=== PATIENT | male | born 1985 | race Caucasian/White ===

== ENCOUNTER 2022-04-08 09:06 | Emergency (ER) | payer OTHER, SELFPAY ==
--- NOTE | ~2022-04-08 | CT_ITS ---
EXAMINATION: CT abdomen pelvis w con DATE: 04/08/2022 10:58 INDICATION: Upper abdominal pain, back pain TECHNIQUE: Computed tomography (CT) of the abdomen and pelvis was performed with 100 CC Omnipaque 350 intravenous contrast. Automated exposure control and iterative reconstruction technique were employe d. Exam dose: 1035.60 mGy-cm total exam DLP. COMPARISON: None. FINDINGS: There is minimal dependent atelectasis in the left lower lobe. Normal heart size. No perica rdial or pleural effusion. Diffuse hepatic steatosis with minimal pericholecystic sparing. No hepatic, splenic, pancreatic, adre nal or renal space-occupying mass lesion. No bile duct or pancreatic duct dilatation. The gallbladder is unremarkable. No urinary tract calculus or hydroureteronephrosis. Normal caliber of the abdominal aorta. No intraperitoneal or retroperitoneal mass lesion or adenopathy or ascites There is diffuse thickening of the urinary bladder wall which may be due to the postevacuated state. Normal size of the prostate gland. Normal caliber of the abdominal aorta. No intraperitoneal or retroperitoneal or pelvic mass lesion or adenopathy or ascites. Normal appendix. No bowel obstruction, bowel wall thickening, pneumatosis or intraperitoneal free air . Very small fat-containing umbilical hernia. Included skeletal structures are unremarkable. No suspicious osteolytic or osteoblastic lesions. IMPRESSION: Hepatic steatosis Normal appendix Reviewed, dictated and finalized at [facility]. Reviewed, dictated and finalized at [facility].
[2022-04-08 09:18] VITALS: BP 142/98; PULSE 71; RESP 14; TEMP 37; O2SAT 98
--- NOTE | 2022-04-08 09:27 | ED.ABDPAIN ---
HPI - Abdominal Pain General Chief Complaint: Abdominal Pain Stated Complaint: mult c/o Time Seen by Provider: 04/08/22 09:13 History of Present Illness HPI narrative: 36-year-old male with no medical problems presents the emergency room for complaints of generalized abdominal pain, mid back pain and fevers for 3 days. Patient states symptoms started on Wednesday, with reported T-max of 103.5. Upper abdominal pain is made worse with eating. States that he has been constipated for 3 days, but did experience a soft stool this morning. Denies melanotic or hematochezia. Patient states he was seen in urgent care yesterday, where he had a negative COVID and flu test. Related Data Allergies Allergy/AdvReac Type Severity Reaction Status Date / Time No Known Allergies Allergy Verified 04/08/22 09:25 Review of Systems Review of Systems: CONSTITUTIONAL: Reports fevers EYES: Denies visual changes, redness, or discharge. ENT: Denies rhinorrhea, congestion, sore throat, or otalgia. CARDIOVASCULAR: Denies chest pain, palpitations, or edema. RESPIRATORY: Denies cough or dyspnea. GASTROINTESTINAL: Reports abdominal pain, nausea, constipation GENITOURINARY: Denies dysuria or hematuria. SKIN: Denies rash or itching. MUSCULOSKELETAL: Reports back pain NEUROLOGIC: Denies headache, numbness, dizziness, or weakness. PSYCHIATRIC: Denies anxiety or depression. Exam Narrative: GENERAL: Well-appearing, well-nourished, no physical limitations, and in no acute distress. HEAD: Normocephalic, atraumatic. EYES: Conjunctivae normal, PERRLA and EOMI. CHEST: Clear to auscultation. No respiratory distress. No wheezes rales or rhonchi. No tenderness. HEART: Regular rate and rhythm. No murmur heard. Normal peripheral pulses. ABDOMEN: Soft, periumbilical tenderness, nondistended, normal active bowel sounds. BACK: No CVA tenderness; No cervical/thoracic/lumbar tenderness, step-offs, bony abnormality; FROM EXTREMITIES: Normal range of motion. No edema. No clubbing or cyanosis SKIN: Warm, diaphoretic, no rash. No noted wounds NEURO: No focal deficits. Alert and oriented x3. MAEW. CN's II-XI intact bilaterally, normal gait PSYCH: Cooperative. Normal mood and affect. Course Vital Signs Vital signs: Vital Signs Temperature 37.0 C 04/08/22 09:18 Pulse Rate 71 04/08/22 09:18 Respiratory Rate 14 04/08/22 09:18 Blood Pressure 142/98 H 04/08/22 09:18 Pulse Oximetry 98 04/08/22 09:18 Temperature 37.0 C 04/08/22 09:18 Pulse Rate 71 04/08/22 09:18 Respiratory Rate 14 04/08/22 09:18 Blood Pressure 142/98 H 04/08/22 09:18 Pulse Oximetry 98 04/08/22 09:18 MDM - Abdominal Pain Lab Data Result diagrams: 04/08/22 09:40 04/08/22 09:40 Labs: Lab Results 04/08/22 04/08/22 04/08/22 Range/Units 09:40 09:40 09:54 WBC 3.7 L (4.5-10.0) K/mm3 RBC 5.27 (4.6-6.20) M/mm3 Hgb 15.5 (14.0-18.0) g/dL Hct 48.1 (42.0-52.0) % MCV 91.3 (80-100) fl MCH 29.4 (26-34) pg MCHC 32.2 (32-36) g/dl RDW 13.2 (11.5-14.5) % Plt Count 237 (150-375) k/mm3 MPV 11.8 H (7.4-10.4) fl Immature Gran % (Auto) 0.3 (0-0.5) % Neut % (Auto) 26.0 L (45.5-73.1) % Lymph % (Auto) 52.3 H (18.3-44.2) % [place] % (Auto) 19.0 H (2.6-8.5) % Eos % (Auto) 1.3 (0-4.4) % Baso % (Auto) 1.1 (0.2-1.2) % Lymph # (Auto) 1.95 (0.9-3.2) K/mm3 [place] # (Auto) 0.7 H (0.1-0.6) K/mm3 Eos # (Auto) 0.1 (0-0.3) K/mm3 Baso # (Auto) 0.0 (0.0-0.1) K/mm3 Abs Immat Gran (auto) 0.01 (0.00-0.031) K/mm3 Absolute Neuts (auto) 1.0 L (1.3-6.7) K/mm3 Absolute Nucleated RBC 0.0 (0.0-0.012) K/mm3 Nucleated RBC % 0.0 (0.0-0.2) % Sodium 139 (137-145) mmol/L Potassium 4.3 (3.4-5.0) mmol/L Chloride 104 (98-107) mmol/L Carbon Dioxide 24 (22-30) mmol/L Anion Gap 11 (8-16) mmol/L BUN 10 (9-20) mg/dL Creatinine 0.80 (0.7-1.3) mg/
[2022-04-08 10:08] LABS: Basophils Percent Auto 1.1 % (0.2-1.2); Eosinophils Absolute Auto 0.1 K/mm3 (0-0.3); Eosinophils Percent Auto 1.3 % (0-4.4); Hematocrit 48.1 % (42.0-52.0); Hemoglobin 15.5 g/dL (14.0-18.0); Immature Granulocyte Absolute 0.01 K/mm3 (0.00-0.031); Immature Granulocyte Percent A 0.3 % (0-0.5); Lymphocytes Absolute Auto 1.95 K/mm3 (0.9-3.2); Lymphocytes Percent Auto 52.3 % (18.3-44.2); Mean Corpuscular HGB Conc 32.2 g/dl (32-36); Mean Corpuscular Hemoglobin 29.4 pg (26-34); Mean Corpuscular Volume 91.3 fl (80-100); Mean Platelet Volume 11.8 fl (7.4-10.4); Monocytes Absolute Auto 0.7 K/mm3 (0.1-0.6); Platelet Count Result 237 k/mm3 (150-375); Red Blood Count 5.27 M/mm3 (4.6-6.20); Red Cell Distribution Width 13.2 % (11.5-14.5); White Blood Count 3.7 K/mm3 (4.5-10.0)
[2022-04-08 10:14] LABS: Appearance Urine Clear (Clear); Bilirubin Urine 1+ (Negative); Blood Urine Negative (Negative); Color Urine Yellow (Yellow); Glucose Urine UA Negative (Negative); Ketones Urine Negative (Negative); Leukocyte Esterase Ur Negative LEU/UL (Negative); Nitrate Urine Negative (Negative); Protein Urine Trace mg/dL (Negative); Specific Grav Ur >= 1.030 (1.001-1.035); Urobilinogen Urine 0.2 mg/dL (<2.0)
[2022-04-08 10:19] LABS: Alanine Aminotransferase 147 U/L (6-50); Albumin Level 4.2 g/dL (3.5-5.1); Alkaline Phosphatase 54 U/L (38-126); Anion Gap 11 mmol/L (8-16); Aspartate Amino Transferase 90 U/L (17-59); Bilirubin,Total 0.4 mg/dL (0.2-1.3); Blood Urea Nitrogen 10 mg/dL (9-20); Calcium 8.6 mg/dL (8.4-10.2); Carbon Dioxide 24 mmol/L (22-30); Chloride 104 mmol/L (98-107); Estimated CRCL calculation 138 ml/min; Estimated Glomerular Filt Rate > 60; Glucose 109 mg/dL (65-110); Lipase 86 U/L (23-300); Potassium 4.3 mmol/L (3.4-5.0); Sodium 139 mmol/L (137-145)
[2022-04-08 10:27] LABS: Add Urine Microscopic? YES; Mucus Urine Moderate /lpf; RBC Urine 0-2 /hpf (0-2); WBC Urine 0-3 /hpf
[2022-04-08] MEDS: SODIUM CHLORIDE 0.9% IV 1,000 ML 999 ML IV CONT (10:28)
[2022-04-08 10:40] LABS: SARS-CoV-2 RNA PCR Positive
== END 2022-04-08 11:49 | disposition home or self-care (01) ==
PROVIDERS: Emergency Provider Nurse Practitioner Family
DX: U07.1 COVID-19 (principal); K59.00 Constipation, unspecified
CPT/HCPCS: 36415; 74177; 80053; 81001; 83690; 85025; 96360; 99284; C9803; J7030; Q9967; U0003; U0005

== ENCOUNTER 2022-07-25 20:06 | Emergency (ER) | payer BC, SELFPAY ==
[2022-07-25] VITALS (22 sets, daily range): BP systolic 130–190; BP diastolic 65–115; PULSE 56–70; RESP 12–19; TEMP 36.6; O2SAT 96–100
--- NOTE | ~2022-07-25 | XR_ITS ---
EXAMINATION: XR chest 2V Exam Date/Time: 07/25/2022 20:28 [employer] HISTORY: SOB CHEST PAIN FOR THE LAST WEEK. Comparison: None available. RESULT: Lines, tubes, and devices: None. Lungs and pleura: Mild diffuse reticulonodular opacities in the mid and lower lungs. Cardiomediastinal silhouette: Stable. Other: No acute osseous or upper abdominal finding. IMPRESSION: Pulmonary opacities may represent bronchiolitis, as can be seen with atypical infection, asthma, aspi ration, and small airways disease. Reviewed, dictated and finalized at location [facility]. [employer] IMPRESSION: Pulmonary opacities may represent bronchiolitis, as can be seen with atypical i nfection, asthma, aspiration, and small airways disease.
--- NOTE | 2022-07-25 20:24 | ECG_ITS ---
Measurements Intervals [place] Rate: 61 P: 48 IN: 170 QRS: 28 QRSD: 100 T: 29 QT: 403 QTc: 408 Interpretive Statements SINUS RHYTHM POSSIBLE LEFT ATRIAL ENLARGEMENT BORDERLINE ECG NO PREVIOUS ECG AVAILABLE FOR COMPARISON Electronically Signed On 07-26-2022 8:01:17 [employer] by Francesco Chanel D.O.
--- NOTE | 2022-07-25 20:27 | PC.NURSE ---
patient reports pain in middle of the neck when he gets SOB. also reports crunching sound in back on occasion x1 week as well
[2022-07-25 20:31] LABS: Basophils Absolute Auto 0.1 K/mm3 (0.0-0.1); Basophils Percent Auto 0.8 % (0.2-1.2); Eosinophils Absolute Auto 0.4 K/mm3 (0-0.3); Eosinophils Percent Auto 3.8 % (0-4.4); Hematocrit 46.7 % (42.0-52.0); Hemoglobin 15.3 g/dL (14.0-18.0); Immature Granulocyte Absolute 0.02 K/mm3 (0.00-0.031); Immature Granulocyte Percent A 0.2 % (0-0.5); Lymphocytes Absolute Auto 3.87 K/mm3 (0.9-3.2); Lymphocytes Percent Auto 35.2 % (18.3-44.2); Mean Corpuscular HGB Conc 32.8 g/dl (32-36); Mean Corpuscular Hemoglobin 29.9 pg (26-34); Mean Corpuscular Volume 91.2 fl (80-100); Mean Platelet Volume 11.1 fl (7.4-10.4); Monocytes Absolute Auto 1.1 K/mm3 (0.1-0.6); Monocytes Percent Auto 10.4 % (2.6-8.5); Neutrophils Absolute Auto 5.5 K/mm3 (1.3-6.7); Neutrophils Percent Auto 49.6 % (45.5-73.1); Platelet Count Result 271 k/mm3 (150-375); Red Blood Count 5.12 M/mm3 (4.6-6.20); Red Cell Distribution Width 12.7 % (11.5-14.5)
[2022-07-25 20:46] LABS: Alanine Aminotransferase 80 U/L (6-50); Albumin Level 4.6 g/dL (3.5-5.1); Alkaline Phosphatase 56 U/L (38-126); Anion Gap 8 mmol/L (8-16); Aspartate Amino Transferase 40 U/L (17-59); Bilirubin,Total 0.8 mg/dL (0.2-1.3); Blood Urea Nitrogen 14 mg/dL (9-20); Carbon Dioxide 30 mmol/L (22-30); Chloride 101 mmol/L (98-107); Estimated CRCL calculation 127 ml/min; Estimated Glomerular Filt Rate > 60; Glucose 93 mg/dL (65-110); Potassium 3.6 mmol/L (3.4-5.0); Sodium 139 mmol/L (137-145)
--- NOTE | 2022-07-25 20:56 | ED.GENADULT ---
HPI - General Adult General Chief complaint: Shortness of Breath/Dyspnea Stated complaint: chest pressure and SOB x 6 day Time Seen by Provider: 07/25/22 20:22 History of Present Illness HPI narrative: This is a 36-year-old male presenting ED with 6 days of chest pain and shortness of breath. Patient says that the pain started last Wednesday and he does not remember what he was doing. Is originally a sharp throbbing pain but is now transition to have a pressure over his chest. It is nonradiating, 5/10 intensity. He says it has happened every hour for at least 5 minutes and then resolves on its own. He has never experienced pain like this before. It improves with stretching and gets worse when he goes walking. He denies vomiting radiation but admits to an exertional component. patient does admit to some lower extremity edema however it is worse at night and improves in the morning and is likely benign peripheral edema. Patient denies fever, chills, productive cough, sick contacts at home. Taken multiple COVID test with no results. Patient states he has a lot of stress at work. Related Data Allergies Allergy/AdvReac Type Severity Reaction Status Date / Time No Known Allergies Allergy Verified 04/08/22 09:25 [facility] Past Medical History Medical History Healthy male adult Exam Narrative: APPEARANCE: No apparent distress. Head: atraumatic. EYES: EOMI, NOSE: Atraumatic NECK: Trachea midline RESPIRATORY: No increased rate of breathing , clear to auscultation bilaterally, CARDIOVASCULAR: RRR, no peripheral edema ABDOMINAL: Non-distended soft, non-tender MUSCULOSKELETAl: No obvious deformities NEURO: Alert. Moving 4/4 extremities SKIN:: Warm, dry. Normal color PSYCHIATRIC: Normal affect Course Vital Signs Vital signs: Vital Signs Temperature 97.8 F 07/25/22 20:06 Pulse Rate 70 07/25/22 20:06 Respiratory Rate 18 07/25/22 20:06 Blood Pressure 190/115 H 07/25/22 20:06 Pulse Oximetry 99 07/25/22 20:06 Oxygen Delivery Room Air 07/25/22 20:06 Temperature 97.8 F 07/25/22 20:06 Pulse Rate 57 L 07/25/22 23:45 Respiratory Rate 17 07/25/22 23:45 Blood Pressure 130/88 07/25/22 23:45 Pulse Oximetry 99 07/25/22 23:45 Oxygen Delivery Room Air 07/25/22 20:23 Medical Decision Making MDM Narrative Medical decision making narrative: DDX includes but is not limited to: anxiety, musculoskeletal pain, ACS, pulmonary embolism, pneumonia, pleurisy Co-morbidities complicating care: none however patient has not seen a PCP in a long time External Chart Review: none Hx from independent Sources: none Discussion of Management: discussed patient's symptoms and the workup that we have planned in the emergency department. If the workup is negative the patient is comfortable following up with a primary care physician. Independent interpretation of studies: Chest x-ray, lab work and ekg seen below. Dx tests considered but not ordered: D-dimer/ CTA was not ordered as the patient is PERC negative. Shared decision making: Risks and benefits of admission versus outpatient follow-up were discussed with the patient. As the patient is young, healthy with normal vital signs is not rub acquiring supplemental oxygen he is a good candidate for outpatient treatment. Patient be discharged primary care follow-up Procedures: None Interventions: None. This is a 36-year-old male presenting with chest pressure over the last week. Lab work, chest x-ray and EKG will be obtained. The patient likely has undiagnosed hypertension, and has exertional component to the pain so an ACS workup will be performed although he is low risk. Independent EKG interpretation: Rhythm [sinus], Rate 61, [place] -[normal], [place] -[normal], QRS [narrow], QTC [normal], T waves -[negative for concerning inversions], ST Segments - [Negative for concerning elevations] Final interpretations
[2022-07-25 21:21] LABS: Troponin I < 0.012 ng/mL (0.000-0.034)
--- NOTE | 2022-07-25 22:56 | PC.NURSE ---
Report received from ELVA Mcintyre. Assumed care of patient at this time.
[2022-07-25 23:21] LABS: Troponin I < 0.012 ng/mL (0.000-0.034)
[2022-07-26 00:01] VITALS: PULSE 79; RESP 17; O2SAT 99
[2022-07-26 00:15] VITALS: PULSE 62; RESP 15; O2SAT 98
[2022-07-26] MEDS: AZITHROMYCIN 250 MG TABLET 500 MG PO (00:21)
== END 2022-07-26 00:32 | disposition home or self-care (01) ==
PROVIDERS: Emergency Provider Emergency Medicine
DX: J18.9 Pneumonia, unspecified organism (principal); R94.31 Abnormal electrocardiogram [ECG] [EKG]
CPT/HCPCS: 36415; 71046; 80053; 84484; 85025; 93005; 99284; A9270

== ENCOUNTER 2022-09-03 13:36 | Outpatient (CLI) | payer BC, SELFPAY ==
--- NOTE | 2022-09-03 15:45 | WPDPFTINT ---
PFT Procedure Performed PFT Procedure Performed Spirometry with Pre/Post Bronchodilator Plethysmography (Lung Vol) Diffusing Cap (DLCO) Flow Vol Loop PFT Interpretation This is a pulmonary function test with pre and post-bronchodilator spirometry, plethysmography and diffusing capacity. The test was performed and results interpreted in accordance with the 2019 and 2005 ATS/ERS Task Force guidelines respectively using the Global Lung Function Initiative-2012 reference equations. Patient demonstrated good effort and cooperation. Reproducibility criteria were met. The quality of the pre bronchodilator spirometry maneuver was Grade A and post bronchodilator spirometry maneuver was Grade A. Findings: Spirometry: the contour the inspiratory and expiratory flow tracing are normal. The pre bronchodilator FVC is 4.92 L, 93% predicted. The pre bronchodilator FEV1 is 3.98 L, 93% predicted. The pre bronchodilator FEV1: FVC ratio was 81%. The post bronchodilator FVC is 4.66 L, representing a 5% decrease. The post bronchodilator FEV1 is 3.93 L, representing 1% decrease. The post bronchodilator FEV1: FVC ratio was 84%. Plethysmography: The total lung capacity is 6.62 L, 95% predicted. The functional residual capacity is 3.26 L, 94% predicted. The residual volume is 1.53 L, 84% predicted. Diffusing capacity: The difusing capacity unadjusted for hemoglobin and carboxyhemoglobin is 32.4, 98% predicted. The diffusing capacity adjusted for alveolar volume is 5.53, 113% predicted. Impression: The spirometry is normal without evidence of an obstructive abnormality. There is no significant improvement after inhaling a single dose of albuterol. The lung volumes are normal. The diffusing capacity is normal. There are no prior studies for comparison
== END 2022-09-03 13:37 | disposition home or self-care (01) ==
LOC: ANHPFT 13:37
PROVIDERS: PCP Physician Assistant; Visit Provider Nurse Practitioner
DX: J45.909 Unspecified asthma, uncomplicated (principal)
CPT/HCPCS: 94060; 94726; 94729

== ENCOUNTER 2022-09-25 01:01 | Day surgery (SDC) | payer BC, SELFPAY ==
[2022-09-21 09:25] VITALS: BMI 36.0
--- NOTE | 2022-09-24 12:25 | PM.HPGS ---
History of Present Illness History of Present Illness Consent: Risks, benefits, and alternatives have been discussed and questions answered. Patient agrees to proceed with procedure. Chief complaint: GERD Narrative: Nimesh Ortiz is a 37 year old male Referred for investigation of chronic gastroesophageal reflux. he wakes up at night coughing because he is regurgitating. He has developed pulmonary problems which is felt to be due in part to his acid reflux. He is taking omeprazole 40 mg daily. Review of Systems Review of Systems: All systems reviewed & are unremarkable except as noted in HPI and below PMFSH Past Medical History Medical History Healthy male adult Social History Social History Smoking status: Former smoker Tobacco type: cigarettes Alcohol intake: current Alcohol use details: socially Substance use: never Substance use type: does not use Living arrangements: with family Spiritual care concerns: No Meds Home Medications and Allergies Home Medications Medication Instructions Recorded Confirmed Type omeprazole 40 mg capsule,delayed 40 mg PO DAILY 09/21/22 09/25/22 History release Allergies Allergy/AdvReac Type Severity Reaction Status Date / Time No Known Allergies Allergy Verified 09/25/22 09:29 Exam Const: General: alert Orientation/consciousness: patient oriented x3 Resp: Auscultation: clear to auscultation bilaterally Cardio: Rhythm: regular rhythm GI: GI Palp: Yes Soft to palpation and No Tenderness to palpation present (GI) Neuro: General: patient oriented x3 Assessment and Plan Assessment and plan (1) GERD (gastroesophageal reflux disease): Code(s): K21.9 - Gastro-esophageal reflux disease without esophagitis Status: Acute Assessment and Plan: EGD with possible biopsy or dilatation or cautery.
[2022-09-25 09:30] VITALS: BP 154/85; PULSE 63; RESP 16; TEMP 36.2; O2SAT 98
[2022-09-25] MEDS: LACTATED RINGERS 1,000 ML 150 ML IV CONT (09:38)
--- NOTE | 2022-09-25 09:58 | P.PNAN_ITS ---
Anes - Initial Pre Proc Eval Procedure: Operation Date: 09/25/22 10:30 Proposed Procedures p Esophagogastroduodenoscopy - Costa Franco MD Date/Time: 09/25/22 09:58 Surgeon: Costa Franco MD Pre Op Diagnosis: GERD Patient Data Age: 37 Gender: M Height: 1.78 m Weight: 116.4 kg Last Vital Signs Temp 36.2 C L 09/25/22 09:30 Pulse 63 09/25/22 09:30 Resp 16 09/25/22 09:30 BP 154/85 H 09/25/22 09:30 Pulse Ox 98 09/25/22 09:30 O2 Del Method Room Air 09/25/22 09:30 Allergies Allergy/AdvReac Type Severity Reaction Status Date / Time No Known Allergies Allergy Verified 09/25/22 09:29 Home Medications Medication Instructions Recorded Confirmed Type omeprazole 40 mg capsule,delayed 40 mg PO DAILY 09/21/22 09/25/22 History release Patient hx anesthesia problems: none Family hx anesthesia problems: none Results Review: All pre-operative results and documents have been reviewed as part of the pre- operative evaluation. [facility] Past Medical History Medical History (Updated 09/25/22 @ 09:59 by Leif Navarrete MD) Asthma GERD (gastroesophageal reflux disease) Obesity OFELIA on CPAP Social History Social History Smoking status: Former smoker Tobacco type: cigarettes Alcohol intake: current Alcohol use details: socially Substance use: never Substance use type: does not use Living arrangements: with family Spiritual care concerns: No Anes - Eval Final PreProcedure Day of Procedure 09/25/22 09:58 Patient weight: obese Heart: regular rate and rhythm Lungs: clear to auscultation and normal air movement Airway: Mallampati scale class II Neurological: alert and oriented Last oral intake: >/= 8 hours ASA classification: III Emergent: no Anesthetic plan: proceed Anesthesia type and monitoring: general GIVS Results Review: All pre-operative results and documents have been reviewed as part of the pre- operative evaluation. Informed Consent: The patient's anesthetic plan and its attendant risks and benefits were discussed with the patient/family/POA. Questions were solicited and answers provided to the satisfaction of the patient/family/POA.
[2022-09-25 10:26] VITALS: BP 130/61; PULSE 69; RESP 20; O2SAT 95
[2022-09-25 10:36] VITALS: BP 135/79; PULSE 72; RESP 18; O2SAT 97
[2022-09-25 10:46] VITALS: BP 140/87; PULSE 66; RESP 18; O2SAT 95
== END 2022-09-25 11:00 | disposition home or self-care (01) ==
PROVIDERS: PCP Physician Assistant; Visit Provider Internal Medicine Gastroenterology
PROC: 0DJ08ZZ Inspection of Upper Intestinal Tract, Via Natural or Artificial Opening Endoscopic (ICD-10-PCS; CPT 43235; principal; 2022-09-25 10:30)
DX: K21.9 Gastro-esophageal reflux disease without esophagitis (principal); Z87.891 Personal history of nicotine dependence
CPT/HCPCS: 43239; 88305; 88342; J2704; J7120

== ENCOUNTER → 2022-12-26 10:51 | Outpatient (CLI) | payer BC, SELFPAY ==
--- NOTE | ~2022-12-26 | XR_ITS ---
XR thoracic spine 3V 12/26/2022 11:24 Indication: Thoracic back pain Procedure: 3 views of the thoracic spine Comparison: No prior studies for comparison. Findings: There is mild multilevel thoracic spondylosis. Vertebral body heights are maintained. Pedic les intact. No paraspinal soft tissue abnormalities. Surrounding osseous structures within normal siddiqui its. No acute fracture or traumatic malalignment. Impression: 1: Mild thoracic spondylosis. Reviewed, dictated and finalized at location [facility]. Impression: 1: Mild thoracic spondylosis.
--- NOTE | ~2022-12-26 | XR_ITS ---
EXAMINATION: XR chest 2V 12/26/2022 11:25 INDICATION: Shortness of breath PROCEDURE: 2 view chest COMPARISON: 07/25/2022 FINDINGS: The lungs are clear. The cardiomediastinal silhouette is within normal limits. There are no pleural effusions. There is no pneumothorax suspected. IMPRESSION: 1: NO ACUTE CARDIOPULMONARY DISEASE. Reviewed, dictated and finalized at location [facility].
== END ==
PROVIDERS: PCP Physician Assistant; Visit Provider Physician Assistant
DX: M47.814 Spondylosis without myelopathy or radiculopathy, thoracic region (principal); R91.8 Other nonspecific abnormal finding of lung field
CPT/HCPCS: 71046; 72072

== ENCOUNTER 2023-02-09 10:20 | Outpatient (CLI) | payer BC, SELFPAY ==
[2023-02-09 11:51] LABS: Hepatitis B Surface Antigen Negative (Negative)
[2023-02-09 11:56] LABS: HAV RESULT Negative (Negative); Hepatitis B Core IgM Result Negative (Negative)
[2023-02-09 12:08] LABS: Hepatitis C Virus Antibody Negative (Negative)
[2023-02-12 12:13] LABS: LKM 1 Antibody <=20.0 U (<=20.0)
== END 2023-02-09 10:21 | disposition home or self-care (01) ==
LOC: ANHLAB 10:22
PROVIDERS: PCP Physician Assistant; Visit Provider Internal Medicine Gastroenterology
DX: K76.0 Fatty (change of) liver, not elsewhere classified (principal); R74.8 Abnormal levels of other serum enzymes
CPT/HCPCS: 36415; 80074; 82728; 86038; 86039; 86376

== ENCOUNTER 2023-02-18 07:57 | Outpatient (CLI) | payer BC, SELFPAY ==
--- NOTE | ~2023-02-18 | US_ITS ---
EXAMINATION: US abdomen complete DATE: 02/18/2023 08:45 INDICATION: Abnormal levels of other serum enzymes. TECHNIQUE: Multiple grayscale and Doppler ultrasound images of the abdomen were obtained. COMPARISON: CT abdomen and pelvis 04/08/2022 FINDINGS: The visualized portions of the head and body of the pancreas are normal. There is diffuse h epatic steatosis. There is normal flow in main portal vein. The gallbladder is normal in size. No gal lstones or gallbladder wall thickening. There was no sonographic [place] sign. The common duct is norm al and measures 5 mm. Abdominal aorta is normal in caliber. Inferior vena cava is normal. The kidneys are normal in size. The spleen is normal in size. IMPRESSION: 1. Diffuse hepatic steatosis. Reviewed, dictated and finalized at location L.
== END 2023-02-18 07:58 | disposition home or self-care (01) ==
PROVIDERS: PCP Physician Assistant; Visit Provider Internal Medicine Gastroenterology
DX: K76.0 Fatty (change of) liver, not elsewhere classified (principal); R74.8 Abnormal levels of other serum enzymes
CPT/HCPCS: 76700

== ENCOUNTER 2024-08-28 11:52 | Emergency (ER) | payer BC, SELFPAY ==
--- NOTE | ~2024-08-28 | CT_ITS ---
History: Dizziness PROCEDURE: CT head without contrast. COMPARISON: None TECHNIQUE: Axial imaging of the head performed from the skull base to the vertex without IV contrast. Sagittal a nd coronal reformations obtained. DLP: 681 mGy-cm FINDINGS: The ventricles are normal in size, shape and position. There is no mass, mass effect or midline shift. There is no abnormal extra-axial fluid collection or intracranial hemorrhage. Visualized paranasal sinuses are clear. The mastoid air cells are well aerated. No acute displaced fractures within the overlying cranium. Impression: No acute intracranial hemorrhage or suspicious mass effect. Reviewed, dictated and finalized at location A. RECORDIST Impression: No acute intracranial hemorrhage or suspicious mass effect.
--- NOTE | ~2024-08-28 | XR_ITS ---
EXAMINATION: XR chest 2V DATE: 08/28/2024 14:51 INDICATION: Dizziness. TECHNIQUE: Frontal and lateral views of the chest were obtained. COMPARISON: Chest 2 views 12/26/2022 FINDINGS: There is no pneumonia, pleural effusion, or pneumothorax. The heart size is normal. IMPRESSION: 1. No acute cardiopulmonary disease. Reviewed, dictated and finalized at location A. TLE DRIVER
--- OUTSIDE RECORDS SUMMARY | 2024-08-28 12:25 | XMS_ITS | Data Portability ---
Author Organization [facility] [employer], Main Office Address [address] [place] [address] Assessment No assessment recorded. Plan of Treatment Reminders Order Date Submit Date Provider Last Modified By Organization Details Last Modified Time Details Appointments None recorded. Lab None recorded. Referral None recorded. Procedures None recorded. Surgeries None recorded. Imaging XR, chest, 2 view 2022 023 [facility], 2022 Razia Emery, [facility] [address], [place], [address], 3 08:59:00 XR, thoracic spine 2022 [email or web address] [place] [address], 2022 Razia Emrey, [address], [place], [address], 3 10:32:36 Medication Orders cyclobenzap rine 10 mg tablet 2022 023 [email or web address] [address] [facility] [address], [address], 3 08:50:57 famotidine 40 mg tablet 2022 023 [facility] [address], [address], 3 08:44:08 omeprazole 40 mg capsule,del ayed release 2022 023 [email or web address] 1 [facility] [address], [address], 3 09:05:10 Zithromax Z-Dennis 250 mg tablet 2023 024 WIL[facility] LEANDRA [address], [place], [address], 4 15:02:16 Ciprodex 0.3 %-0.1 % ear drops,suspe nsion 2023 024 [facility] [address], [place], [address], 4 15:02:17 Sudafed 30 mg tablet 2023 024 [facility] [address], [place], [address], 4 17:04:50 omeprazole 20 mg capsule,del ayed release 2023 024 [facility] [address], [place], [address], 4 17:04:49 Patient TargetsNo targets recorded. Patient Instructions Encounter Date Encounter Id Patient Instructions Last Modified By Organization Details Last Modified Time 12/21/2022 [id number] rhomboid muscle strain: rehab exercises Not available 12/21/2022 08:50:05 Reason for Referral None Reported. Results Created Date Observation Date Name Description Value Unit Range Abnormal Flag Note LastModifiedBy Organization Detail LastModifiedTime 09/03/1909/03/2022 compl ete PFT w/ post [facility] hodil ator harmeet metry * No observ ation record ed. [id number] [facility] [address], [place], [address], 09/17/2022 01:50:45 01/01/2012/26/2022 XR, chest , 2 view No observ ation record ed. [facility] 2022 Razia Emery [address], [place], [address], 01/01/2023 21:20:11 Result Notes None recorded. Problems Name Problem SNOMED Code Status Onset Date Resolution Date Notes Provider Name and Address Organization Details Recorded Time Atypical chest pain 105400157 Active 2022 Not Available [facility] 3 01:49:20 Asthma 615356790 Active 2022 Not Available [facility] 3 01:49:20 Gastroesophag eal reflux disease without esophagitis 614177559 Active 2022 Not Available [facility] 3 01:49:20 Abnormal findings on diagnostic imaging of lung 157466208 Active 2022 Not Available [facility] 3 01:49:20 Dyspnea on exertion 63070545 Active 2022 Not Available [facility] 3 01:49:21 Thoracic back pain 448041333 Active 2022 AUBREY Ballard [address], [place], [address] , [place] 3 08:45:41 Acute otitis media 9221355 Active 2023 SANTIAGO Figueroa [address], [place], [address] , [place] 4 14:44:09 Acute sinusitis 69794578 Active 2023 SANTIAGO Figueroa [address], [place], [address] , [place] 4 16:34:15 Elevated blood-pressur e reading without diagnosis of hypertension 171817817 Active 2023 SANTIAGO Figueroa [address], [place], [address] , [place] 4 16:35:49 Problem Notes None recorded. Procedures Surgical History None recorded. Imaging Results Imaging Date Name Status LastModified by Organization Details LastModified Time 09/03/2022 complete PFT w/ post bronchodilator spirometry* completed [id number] [facility] [address], [place], [address], 09/17/2022 01:50:45 12/26/2022 XR, chest, 2 view completed [facility] 20[address], [place], [address], 01/01/2023 21:20:11 Procedure Notes None recorded. Medical Equipment None Reported. Allergies No known drug allergies Medications Name Sig Start Date Stop Date Status Note LastModified by Organization Details LastModified Time id now influenza a & b 2 test kit TEST DIRECTED TODAY active Not Available Not Available No t Available cyclobenzap rine 10 mg tablet TAKE 1 TABLET BY MOUTH THREE TIMES A DAY FOR 30 DAYS active Not Available Not Available No t Available prednisone 10 mg tablet PLEASE SEE ATTACHED FOR DETAILED DIRECTION S active Not Available Not Available No t Available azithromyci n 250 mg tablet TAKE 2 TABLETS BY MOUTH TODAY, THEN TAKE 1 TABLET DAILY FOR 4 DAYS DIRECTED active Not Available Not Available No t Available benzonatate 200 mg capsule TAKE 1 CAPSULE (ORAL) 3 TIMES PER DAY NEEDED active Not Available Not Available No t Available famotidine 40 mg tablet TAKE 1 TABLET BY MOUTH EVERY DAY active Not Available Not Available No t Available prednisone 20 mg tablet TAKE 1 TABLET BY MOUTH EVERY DAY FOR 5 DAYS active Not Available Not Available No t Available omeprazole 40 mg capsule,del ayed release TAKE 1 CAPSULE BY MOUTH TWICE A DAY active Not Available Not Available No t Available ofloxacin 0.3 % ear drops INSTILL 4 DROPS INTO AFFECTED EAR ONCE A DAY 5 DAYS active Not Available Not Available No t Available amoxicillin 875 mg tablet TAKE 1 TABLET BY MOUTH TWICE A DAY FOR 7 DAYS active Not Available Not Available No t Available neomycin-po lymyxin-dex ameth 3.5 mg/mL-10,00 0 unit/mL-0.1 % eye drops INSTILL 1 DROP INTO LEFT EYE 3 TIMES A DAY active Not Available Not Available No t Available omeprazole 20 mg capsule,del ayed release TAKE 1 CAPSULE BY MOUTH EVERY DAY FOR 90 DAYS active Not Available Not Available No t Available methylpredn isolone 4 mg tablets in a dose pack TAKE 6 TABLETS ON DAY 1 DIRECTED ON PACKAGE AND DECREASE BY 1 TAB EACH DAY FOR A TOTAL OF 6 DAYS active Not Available Not Available No t Available albuterol sulfate HFA 90 mcg/actuati on aerosol inhaler INHALE 1 PUFF BY MOUTH EVERY 4 TO 6 HOURS NEEDED active Not Available Not Available No t Available fluticasone propionate 50 mcg/actuati on nasal spray,suspe nsion SPRAY 2 SPRAYS INTO EACH NOSTRIL (AIMED OUTWARD) ONCE DAILY active Not Available Not Available No t Available Sudafed 30 mg tablet Take 2 tablets every 4-6 hours by oral route as needed. 2023 active Not Available Not Available Not Avai lable amoxicillin 875 mg-potassiu m clavulanate 125 mg tablet TAKE 1 TABLET BY MOUTH EVERY 12 HOURS FOR 10 DAYS active Not Available Not Available No t Available ciprofloxac in 0.3 %-dexametha sone 0.1 % ear drops,suspe nsion INSTILL 4 DROPS INTO AFFECTED EAR(S) TWICE A DAY FOR 7 DAYS active Not Available Not Available No t Available Arnuity Ellipta 100 mcg/actuati on powder for inhalation INHALE 1 PUFF BY MOUTH ONCE DAILY DIRECTED active Not Available Not Available No t Available ID NOW COVID-19 Test Kit TEST DIRECTED TODAY 08/03 completed Not Available Not Available Not Available Vitals Date Recorded Body mass index (BMI) Body mass index (BMI) Body height Body height Oxygen saturation Oxygen saturation in Arterial blood by Pulse oximetry Oxygen saturation Oxygen saturation in Arterial blood by Pulse oximetry Heart rate Heart rate Body temperature Body temperature Body weight Body weight Systolic blood pressure Diastolic blood pressure Systolic blood pressure Diastolic blood pressure Provider Name and Address Organization Details Last Updated DateTime 3 36.9 kg/m2 37.2 kg/m2 177.8 cm 177.8 cm 99 % 99 % 97 % 97 % 73 /min 72 /min 98 [degF] 98.2 [degF] 490905. 24 g 490260. 42 g 144 mm[Hg] 94 mm[Hg] 142 mm[Hg] 80 mm[Hg] Not Available [facility] 3 01:48:46 Date Recorded Body height Body mass index (BMI) Body weight Body temperature Oxygen saturation Oxygen saturation in Arterial blood by Pulse oximetry Heart rate Systolic blood pressure Diastolic blood pressure Provider Name and Address Organization Details Last Updated DateTime 3 177.8 cm 37.6 kg/m2 259359. 2 g 97.7 [degF] 98 % 98 % 90 /min 122 mm[Hg] 76 mm[Hg] Noelle Mcpherson CMA [place] [email or web address] [employer] 3 08:35:26 Date Recorded Body height Body mass index (BMI) Body weight Body temperature Oxygen saturation Oxygen saturation in Arterial blood by Pulse oximetry Heart rate Systolic blood pressure Diastolic blood pressure Provider Name and Address Organization Details Last Updated DateTime 4 177.8 cm 39 kg/m2 624758. 12 g 97.4 [degF] 97 % 97 % 72 /min 142 mm[Hg] 84 mm[Hg] Tabby Payne RN [facility] [employer] 4 14:39:47 Date Recorded Body height Body mass index (BMI) Body weight Body temperature Heart rate Oxygen saturation Oxygen saturation in Arterial blood by Pulse oximetry Systolic blood pressure Diastolic blood pressure Provider Name and Address Organization Details Last Updated DateTime 4 177.8 cm 39 kg/m2 294634. 12 g 97.9 [degF] 71 /min 97 % 97 % 154 mm[Hg] 88 mm[Hg] Sushila Marr RN [facility] [employer] 4 16:17:11 Social History Question Answer Notes LastModified by Organizat ion Details LastModified Time Tobacco Smoking Status Former Smoker Not Available [employer] 09/17/2022 01:47:26 What Is Your Level Of Alcohol Consumption? Occasional [id number] Information not available 09/17/2022 What Is Your Level Of Caffeine Consumption? Heavy [id number] Information not available 09/17/2022 In The 14 Days Before Symptom Onset, Have You Had Close Contact With A Laboratory-confir med COVID-19 While That Case Was Ill? No [id number] Information not available 09/17/2022 In The 14 Days Before Symptom Onset, Have You Had Close Contact With A Person Who Is Under Investigation For COVID-19 While That Person Was Ill? No [id number].[id number] Information not available 09/17/2022 What Type Of Diet Are You Following? REGULAR [id number] Information not available 09/17/2022 What Was The Date Of Your Most Recent Tobacco Screening? 08/31/2022 [id number] Information not available 09/17/2022 At What Age Did You Start Smoking Tobacco? 20 Off And On MIGRATION.15388 03850 Information not available 09/17/2022 Do You Use Any Illicit Or Recreational Drugs? No MIGRATION.39742 [id number] Information not available 09/17/2022 Has Tobacco Cessation Counseling Been Provided? No MIGRATION.58341 [id number] Information not available 09/17/2022 Do You Have Any Dietary Restrictions? No MIGRATION.64765 90617 Information not available 09/17/2022 Do You Or Have You Ever Used Any Other Forms Of Tobacco Or Nicotine? No MIGRATION.98017 [id number] Information not available 09/17/2022 Sex: Unknown Functional Status Question Answer Note LastModified by Organizat ion Details LastModified Time What is your exercise level? Occasional [id number] Information not available 09/17/2022 Mental Status None recorded. Family History Relationship Description Onset Age of this Age Resolved Age Notes LastModified by Organization Details LastModified Time Father Hypertensive disorder [id number] Not available 09/17/2022 01:47:54 Father Diabetes mellitus [id number] Not available 09/17/2022 01:47:54 Mother Hypertensive disorder [id number] Not available 09/17/2022 01:47:54 Mother Diabetes mellitus [id number] Not available 09/17/2022 01:47:54 Medical History No medical history recorded. Past Encounters Encounter ID Performer Location Encounter Start Date Encounter Closed Date Diagnosis/Indication Diagnosis SNOMED-CT Code Diagnosis ICD10 Code Diagnosis Note [id number] [facility] [address] [facility] [address] [place] [address] 08/03/2022 00:00:00 08/03/2022 20:19:28 [id number] [facility] [address] [facility] [address] [place] [address] 08/14/2022 00:00:00 08/14/2022 18:14:11 [id number] [facility] Pulmonolo gy [facility] [address] [place] [address] 08/31/2022 00:00:00 08/31/2022 13:48:57 [id number] AUBREY Ballard [facility] Primary Care [facility] [address] [facility] [address] [place] [address] 12/21/2022 08:29:30 12/21/2022 09:16:09 Gastroesophageal reflux disease without esophagitis 214121160 K21.9 Not improved. Has seen GI and had scope, recommende d possible surgery to tighten sphincter but no major abnormalit ies noted on scope. Continue PPI, will add famotidine . Work on lifestyle. Still no improvemen t, advised to follow-up back up with GI. Thoracic back pain 94954 8004 M54.6 Symptoms most likely related to GERD, but pt. requesting XR.In case there is muscular component, will also try some home stretched and muscle relaxer. Abnormal f indings on diagnostic imaging of lung 256727668 R91.8 Did not have repeat CXR completed, new orders given today. [id number] SANTIAGO Figueroa [facility] Primary Care [address] [place] [address] 08/04/2023 14:31:31 08/04/2023 15:39:34 Acute otitis media 5915887 H66.92 -has been an issue for 10 days-f/u with UC, was given abx and steroids, today is his last day of abx,-notes difficulty hearing, ear pain, tinnitis-f elt like it started draining yesterday- he has an appt with ENT on 08/23-trial zpak and ciprodex [id number] SANTIAGO Figueroa [facility] Primary Care [address] [place] [address] 09/08/2023 16:07:53 09/08/2023 17:08:01 Acute sinusitis 06978365 J01.90 -noting a lot of drainage for the last couple days-has been using nyquil/day quil for symptoms-r ight ear continues to be clogged-dorota maria Elevated blood-pressure reading without diagnosis of hypertension 563598475 R03.0 -has been checking his bp at home (150s-130' s systolic)- encouraged to check his bp first thing in the morning-en couraged to increase water intake-enc ouraged to decrease caffeine/e nergy drinks Gastroesop hageal reflux disease without esophagitis 056581330 K21.9 -chronic, stable with meds-has been using omeprazole 20mg every other day prn with positive results-re fill omeprazole 20mg Health Concerns Section Related Observation LastModified by Organization Detai ls LastModified Time None Recorded Concern Status LastModified by Organization Details LastModified Time None Recorded Advance Directives Directive None Recorded Payers Encounter Date Sequence Insurance Name Policy Number Policy Funez Covered Member ID [id number] Member ID Guarantor Name 12/21/2022 1 [place] [id number] Nimesh Angel [id number] Nimesh Dalelois 08/04/2023 1 [place] [id number] Nimesh Angel [id number] Nimesh Dalelois 09/08/2023 1 [place] [id number] Nimesh Dalelois [id number] Nimesh Ortiz Notes Date Note Type Note Provider Name and Address Organization Details Recorded Time 12/21/2022 text/html Pt. states over the last few weeks his back has been bothering him and seemed to increase his acid reflux. He did have an endoscopy done since last visit and states he was told his sphincter seemed loose between his esophagus and stomach but no other abnormalities found. AUBREY Ballard [address] [place], [place], [address], [place] 12/21/2022 09:07:33 08/04/2023 text/html Pt is here to discuss left ear infection SANTIAGO Figueroa [address], [place], [address], [place] 08/04/2023 15:02:34 09/08/2023 text/html Pt is here to discuss sinus infection SANTIAGO Figueroa [address], [place], [address], [place] 09/08/2023 17:05:06
--- OUTSIDE RECORDS SUMMARY | 2024-08-28 12:25 | XMS_ITS | Clinical Summary ---
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 Name Role Phone Unavailable Primary Care Provider Unavailabl e Allergies No known active allergies Medications No known medications Active Problems Problem Noted Date Diagnosed Date Tobacco use 12/02/2018 Acne 01/25/2017 Anxiety and depression 01/25/2017 Obesity (BMI 30-39.9) 01/25/2017 Snoring 01/25/2017 Insomnia 01/25/2017 Chronic fatigue 01/25/2017 Alcohol abuse 01/25/2017 Elevated blood pressure reading 01/25/2017 Immunizations Immunization Administration Dates Next Due (ADACEL/BOOSTRIX)(10 YR UP) TDAP VACCINE, 0.5ML, IM 07/07/2021 Family History Medical History Relation Name Comments Depression Brother 1 Hypertension Brother 1 Schizophrenia Brother 1 Hypertension Father Diabetes Maternal Grandfather Alzheimer's Disease Maternal Grandmother Depression Mother Diabetes Mother High Cholesterol Mother Hypertension Mother Cancer Paternal Grandfather Relation Name Status Comments Brother 1 Alive Father Alive Maternal Grandfather Maternal Grandmother Mother Alive Paternal Grandfather Paternal Grandmother Social History Tobacco Use Types Packs/Day Years Used Date Smoking Tobacco: Every Day Cigarettes 0.1 10 Smokeless Tobacco: Never Tobacco Cessation:Ready to Q uit: Yes; Counseling Given: Yes Comments:3 cigarettes every few days Alcohol Use Standard Drinks/Week Comments Yes 15 (1 standard drink = 0.6 oz pu re alcohol) approx 3 days a week Sex and Gender Information Value Date Recorded Sex Assigned at Not on file Legal Sex Male 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 Gender Identity Not on file Sexual Orientation Not on file 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 Not on file Not on file Not on file Last Filed Vital Signs Vital Sign Reading Time Taken Comments Blood Pressure 145/76 07/07/2021 3:26 PM FOOD SCIENTIST Pulse 91 07/07/2021 3:26 PM FOOD SCIENTIST Temperature 36.7 C (98 F) 07/07/2021 3:26 PM FOOD SCIENTIST Respiratory Rate 15 07/07/2021 11:42 AM FOOD SCIENTIST Oxygen Saturation 97% 07/07/2021 3:26 PM FOOD SCIENTIST Inhaled Oxygen Concentration - - Weight 117.9 kg (260 lb) 07/07/2021 3:26 PM FOOD SCIENTIST Height 177.8 cm (5' 10 ) 07/07/2021 3:26 PM FOOD SCIENTIST Body Mass Index 37.31 07/07/2021 3:26 PM FOOD SCIENTIST Plan of Treatment Health Maintenance Due Date Last Done Comments PNEUMOCOCCAL VACCINE 0-64 YE ARS (1 of 2 - PCV) 1989 HEPATITIS B VACCINES (1 of 3 - 19+ 3-dose series) 2002 INFLUENZA VACCINE (#1) 2024 12/02/2018 DTAP/TDAP/TD VACCINES (2 - T d or Tdap) 07/07/2031 07/07/2021 HPV VACCINES Aged Out No longer eligi ble based on patient's age to complete this topic Insurance [facility] BLUE ACCESS CHOICE [facility] BLUE PREFERRED
[2024-08-28 12:37] VITALS: BP 153/84; PULSE 69; RESP 17; TEMP 37.3; O2SAT 97
--- NOTE | 2024-08-28 13:58 | ED.DIZZY ---
HPI - Dizziness General Chief Complaint: Dizziness <Nancy Grant PA-C - Last Filed: 08/30/24 18:42> Stated Complaint: dizzy, ears ringing <Nancy Grant PA-C - Last Filed: 08/30/24 18:42> Time Seen by Provider: 08/28/24 13:58 <Nancy Grant PA-C - Last Filed: 08/30/24 18:42> Focused HPI: This is a 39 year old male that presents to the ER for upper back pain. Reports throbbing pain, intermittently sharp. Reports room spinning dizziness. Reports headaches, he did have ringing in his ears as well. Reports sinus congestion/pain. Ongoing over the last week. GENERAL: Well-appearing, well-nourished, and in no acute distress. HEAD: Normocephalic, atraumatic. CHEST: Clear to auscultation. ?No respiratory distress. HEART: Regular rate and rhythm.? NEURO: ?Alert and oriented x3. Patient screened in triage and initial orders placed.? ?Additional care and disposition to be based upon?diagnostic testing and treatment. <Nancy Grant PA-C - Last Filed: 08/30/24 18:42> History of Present Illness HPI Narrative: Agree with the HPI above. Would also like to add the patient has seen ear nose and throat outpatient, had previous CT scan images without concern, not tried any prescription medications such as meclizine or diphenhydramine. Has had tympanostomy tubes recently placed 1 year prior for chronic ear infections. <Jamie Meneses MD - Last Filed: 08/28/24 19:23> Related Data Home Medications: Home Medications ?Medication ?Instructions ?Recorded ?Confirmed ?Last Taken ?Type omeprazole 40 mg capsule,delayed 40 mg PO BID 02/09/23 02/09/23 Unknown History release <Nancy Grant PA-C - Last Filed: 08/30/24 18:42> Allergies/Adverse Reactions: Allergies Allergy/AdvReac Type Severity Reaction Status Date / Time No Known Allergies Allergy Verified 02/09/23 09:31 <Nancy Grant PA-C - Last Filed: 08/30/24 18:42> Review of Systems Review of Systems: As reviewed above in HPI <Jamie Meneses MD - Last Filed: 08/28/24 19:23> [facility] Past Medical History Medical History: Medical History OFELIA on CPAP Asthma Obesity GERD (gastroesophageal reflux disease) <Nancy Grant PA-C - Last Filed: 08/30/24 18:42> Social History Social History: Social History Smoking status: Former smoker Tobacco type: cigarettes Alcohol intake: current Alcohol use details: socially Substance use: never Substance use type: does not use Living arrangements: with family Spiritual care concerns: No <Nancy Grant PA-C - Last Filed: 08/30/24 18:42> Exam Narrative: GENERAL: [Well-appearing, well-nourished, and in no acute distress.] HEAD: [Normocephalic, atraumatic.] EYES: [PERRLA and EOMI.] ENT: Nares clear, no rhinorrhea or epistaxis. Mucous membranes moist. Bilateral tympanostomy tubes without any effusions or drainage, no bulging TM, no effusion. No posterior pharyngeal erythema, no evidence of any clear fluid drainage from the ear nose or the back throat NECK: Supple. CHEST: [Clear to auscultation. No respiratory distress.] HEART: [Regular rate and rhythm]. No murmur heard. [Normal peripheral pulses.] ABDOMEN: [Soft, nondistended], [nontender], [No rigidity or guarding] EXTREMITIES: Normal range of motion. [No edema.] SKIN: Warm, dry, no rash. NEURO: [No focal deficits]. Alert and oriented [x3.] PSYCH: [Normal mood and affect.] <Jamie Meneses MD - Last Filed: 08/28/24 19:23> Course Vital Signs Vital signs: Vital Signs Temperature 99.2 F 08/28/24 12:37 Pulse Rate 69 08/28/24 12:37 Respiratory Rate 17 08/28/24 12:37 Blood Pressure 153/84 H 08/28/24 12:37 Pulse Oximetry 97 08/28/24 12:37 Oxygen Delivery Room Air 08/28/24 12:37 Temperature 99.2 F 08/28/24 12:37 Pulse Rate 76 08/28/24 19:33 Respiratory Rate 16 08/28/24 19:33 Blood Pressure 137/76 08/28/24 19:33 Pulse Oximetry 98 08/28/24 19:33 Oxygen Delivery Room Air 08/28/24 12:37 <Nancy Grant PA-C - Last Filed: 08/30/24 18:42> Vital Signs Temperature 99.2 F 08/28/24 12:37 Pulse Rate 69 08/28/24 12:37 Respiratory Rate 17 08/28/24 12:37 Blood Pressure 153/84 H 08/28/24 12:37 Pulse Oximetry 97 08/28/24 12:37 Oxygen Delivery Room Air 08/28/24 12:37 Temperature 99.2 F 08/28/24 12:37 Pulse Rate 76 08/28/24 19:33 Respiratory Rate 16 08/28/24 19:33 Blood Pressure 137/76 08/28/24 19:33 Pulse Oximetry 98 08/28/24 19:33 Oxygen Delivery Room Air 08/28/24 12:37 <Jamie Meneses MD - Last Filed: 08/28/24 19:23> MDM - Dizziness MDM Narrative Medical decision making narrative: 39-year-old male presenting with dizziness intermittent in nature associated with cough, congestion cold-like symptoms. His symptoms have been going on for quite some time, has seen research geologist about this but never tried diphenhydramine her meclizine. Reports and upper back pain that he has had for years since COVID. Denies any new trauma or injuries. Went to urgent care and was referred to the ER for evaluation. Has had CT scans that findings. Ambulates with a steady gait, otherwise reassuring vital signs with a blood pressure concerns, tachycardia, fever, hypoxia. Normal neurological assessment. He has tympanostomy tubes but no signs of active infection, drainage. No signs of any basilar skull fracture injury. No evidence of CSF leak. Normal neuro exam. Considerations presently are for symptomatic vertigo, benign positional paroxysmal vertigo, labyrinthitis, less likely intracranial pathology such as stroke or vertebrobasilar insufficiency given his reassuring exam and symptomatic improvement with meclizine in triage. Workup including CBC, CMP, PT, PTT, COVID flu and RSV tests, EKG, chest x-ray and a CT of the head. He was given Zofran meclizine in triage with improvement symptomatically without recurrence. No leukocytosis or anemia. Normal platelet count. Normal coagulation studies. Normal electrolytes, normal renal function panel, normal glucose, normal LFTs. Negative CT head without acute findings. Negative viral panel. Chest x-ray without acute findings. EKG without any acute ischemic changes or any evidence of ectopy. Overall normal sinus rhythm. Given patient's symptomatic resolution and unremarkable workup I believe he can be safe for discharge home with outpatient follow-up and given a prescription for meclizine. Patient verbalized return precautions and expressed understanding for close evaluation on outpatient basis. <Jamie Meneses MD - Last Filed: 08/28/24 19:23> Medical Records Attestation: I reviewed the patient's medical records. <Jamie Meneses MD - Last Filed: 08/28/24 19:23> Lab Data Attestation: I reviewed the patient's lab results. <Jamie Meneses MD - Last Filed: 08/28/24 19:23> Result diagrams: 08/28/24 15:59 08/28/24 15:59 <Nancy Grant PA-C - Last Filed: 08/30/24 18:42> Labs: Lab Results 08/28/24 Range/Units 15:59 WBC 8.1 (4.5-10.0) K/mm3 RBC 5.09 (4.6-6.20) M/mm3 Hgb 15.1 (14.0-18.0) g/dL Hct 46.4 (42.0-52.0) % MCV 91.2 (80-100) fl MCH 29.7 (26-34) pg MCHC 32.5 (32-36) g/dl RDW 12.8 (11.5-14.5) % Plt Count 259 (150-375) k/mm3 MPV 11.1 H (7.4-10.4) fl Immature Gran % (Auto) 0.2 (0-0.5) % Neut % (Auto) 57.4 (45.5-73.1) % Lymph % (Auto) 30.4 (18.3-44.2) % [place] % (Auto) 8.7 H (2.6-8.5) % Eos % (Auto) 2.7 (0-4.4) % Baso % (Auto) 0.6 (0.2-1.2) % Lymph # (Auto) 2.47 (0.9-3.2) K/mm3 [place] # (Auto) 0.7 H (0.1-0.6) K/mm3 Eos # (Auto) 0.2 (0-0.3) K/mm3 Baso # (Auto) 0.1 (0.0-0.1) K/mm3 Abs Immat Gran (auto) 0.02 (0.00-0.031) K/mm3 Absolute Neuts (auto) 4.7 (1.3-6.7) K/mm3 Absolute Nucleated RBC 0.000 (0.0-0.012) K/mm3 Nucleated RBC % 0.0 (0.0-0.2) % PT 13.3 (11.1-14.7) Seconds INR 1.0 APTT 23.5 (22.3-36.8) Seconds Sodium 138 (137-145) mmol/L Potassium 4.2 (3.4-5.0) mmol/L Chloride 105 (98-107) mmol/L Carbon Dioxide 25 (22-30) mmol/L Anion Gap 8 (4-12) mmol/L BUN 11 (9-20) mg/dL Creatinine 0.70 (0.7-1.3) mg/dL Estim Creat Clear Calc 155 ml/min Estimated GFR > 60 (59 - ) Glucose 148 H (65-110) mg/dL Calcium 9.2 (8.4-10.2) mg/dL Total Bilirubin 0.9 (0.2-1.3) mg/dL AST 34 (17-59) U/L ALT 75 H (6-50) U/L Alkaline Phosphatase 51 (38-126) U/L Total Protein 8.0 (6.3-8.2) g/dL Albumin 4.2 (3.5-5.1) g/dL Influenza A (RT-PCR) Negative (Negative) Influenza B (RT-PCR) Negative (Negative) RSV (RT-PCR) Negative (Negative) SARS-CoV-2 RNA (RT-PCR) Negative (Negative) <Nancy Grant PA-C - Last Filed: 08/30/24 18:42> Lab Results 08/28/24 Range/Units 15:59 WBC 8.1 (4.5-10.0) K/mm3 RBC 5.09 (4.6-6.20) M/mm3 Hgb 15.1 (14.0-18.0) g/dL Hct 46.4 (42.0-52.0) % MCV 91.2 (80-100) fl MCH 29.7 (26-34) pg MCHC 32.5 (32-36) g/dl RDW 12.8 (11.5-14.5) % Plt Count 259 (150-375) k/mm3 MPV 11.1 H (7.4-10.4) fl Immature Gran % (Auto) 0.2 (0-0.5) % Neut % (Auto) 57.4 (45.5-73.1) % Lymph % (Auto) 30.4 (18.3-44.2) % [place] % (Auto) 8.7 H (2.6-8.5) % Eos % (Auto) 2.7 (0-4.4) % Baso % (Auto) 0.6 (0.2-1.2) % Lymph # (Auto) 2.47 (0.9-3.2) K/mm3 [place] # (Auto) 0.7 H (0.1-0.6) K/mm3 Eos # (Auto) 0.2 (0-0.3) K/mm3 Baso # (Auto) 0.1 (0.0-0.1) K/mm3 Abs Immat Gran (auto) 0.02 (0.00-0.031) K/mm3 Absolute Neuts (auto) 4.7 (1.3-6.7) K/mm3 Absolute Nucleated RBC 0.000 (0.0-0.012) K/mm3 Nucleated RBC % 0.0 (0.0-0.2) % PT 13.3 (11.1-14.7) Seconds INR 1.0 APTT 23.5 (22.3-36.8) Seconds Sodium 138 (137-145) mmol/L Potassium 4.2 (3.4-5.0) mmol/L Chloride 105 (98-107) mmol/L Carbon Dioxide 25 (22-30) mmol/L Anion Gap 8 (4-12) mmol/L BUN 11 (9-20) mg/dL Creatinine 0.70 (0.7-1.3) mg/dL Estim Creat Clear Calc 155 ml/min Estimated GFR > 60 (59 - ) Glucose 148 H (65-110) mg/dL Calcium 9.2 (8.4-10.2) mg/dL Total Bilirubin 0.9 (0.2-1.3) mg/dL AST 34 (17-59) U/L ALT 75 H (6-50) U/L Alkaline Phosphatase 51 (38-126) U/L Total Protein 8.0 (6.3-8.2) g/dL Albumin 4.2 (3.5-5.1) g/dL Influenza A (RT-PCR) Negative (Negative) Influenza B (RT-PCR) Negative (Negative) RSV (RT-PCR) Negative (Negative) SARS-CoV-2 RNA (RT-PCR) Negative (Negative) <Jamie Meneses MD - Last Filed: 08/28/24 19:23> Imaging Data Attestation: I personally reviewed and interpreted this imaging study as follows: <Jamie Meneses MD - Last Filed: 08/28/24 19:23> My impression: Impressions Head CT 08/28/24 14:33 Impression: No acute intracranial hemorrhage or suspicious mass effect. Chest X-Ray 08/28/24 14:51 IMPRESSION: 1. No acute cardiopulmonary disease. <Jamie Meneses MD - Last Filed: 08/28/24 19:23> Critical Care Time Critical Care Time Critical Care Time: No <Nancy Grant PA-C - Last Filed: 08/30/24 18:42> Discharge Plan Discharge Clinical Impression: Vertigo, Dizziness <Nancy Grant PA-C - Last Filed: 08/30/24 18:42> Patient Disposition: Home, Self-Care <Nancy Grant PA-C - Last Filed: 08/30/24 18:42> Condition: Stable <Nancy Grant PA-C - Last Filed: 08/30/24 18:42> Instructions: Antibiotic Form, Vertigo (ED), Benign Paroxysmal Positional Vertigo (ED), Dizziness (ED) <Nancy Grant PA-C - Last Filed: 08/30/24 18:42> Additional Instructions: Your workup today was very reassuring, no signs of basilar skull fracture any evidence of a leak. No intracranial or brain findings at this time. We will send you home with meclizine which is as prescription medications to help the symptoms. Take this medication as needed, follow-up with your research geologist and her primary doctor, might need an MRI outpatient if this is not getting better with conservative therapy. <Nancy Grant PA-C - Last Filed: 08/30/24 18:42> Patient Language: Georgian <Nancy Grant PA-C - Last Filed: 08/30/24 18:42> Prescriptions: New meclizine 25 mg tablet 25 mg PO TID PRN (Reason: dizziness) 10 Days Qty: 30 0RF No Action omeprazole 40 mg capsule,delayed release(DR/EC) 40 mg PO BID <Nancy Grant PA-C - Last Filed: 08/30/24 18:42> Follow-up/Referrals: PHYSICIAN NOT ON STAFF,NONSTAFF [Non-Staff] - <Nancy Grant PA-C - Last Filed: 08/30/24 18:42> Time of Disposition: 19:16 <Nancy Grant PA-C - Last Filed: 08/30/24 18:42> 19:16 <Jamie Meneses MD - Last Filed: 08/28/24 19:23>
--- NOTE | 2024-08-28 14:00 | ECG_ITS ---
Test Date: 2024-08-28 16:03:57 Measurements Intervals [place] Rate: 61 P: 47 [place]: 187 QRS: 15 QRSD: 105 T: 6 QT: 385 QTc: 391 Interpretive Statements SINUS RHYTHM NONSPECIFIC ST-T WAVE ABNORMALITY- INFERIOR LEADS BASELINE ARTIFACT- I, II, III, AVR, AVL BORDERLINE ECG No previous ECG available for comparison Electronically Signed On 08-28-2024 17:00:12 WEB ENGINEER by Francesco Chanel D.O.
[2024-08-28] MEDS: MECLIZINE HCL 25 MG TABLET PO (16:00)
[2024-08-28] MEDS: ONDANSETRON INJ 4 MG/2 ML VIAL IV PUSH (16:00)
[2024-08-28 16:12] LABS: Basophils Absolute Auto 0.1 K/mm3 (0.0-0.1); Basophils Percent Auto 0.6 % (0.2-1.2); Eosinophils Absolute Auto 0.2 K/mm3 (0-0.3); Eosinophils Percent Auto 2.7 % (0-4.4); Hematocrit 46.4 % (42.0-52.0); Hemoglobin 15.1 g/dL (14.0-18.0); Immature Granulocyte Absolute 0.02 K/mm3 (0.00-0.031); Immature Granulocyte Percent A 0.2 % (0-0.5); Lymphocytes Absolute Auto 2.47 K/mm3 (0.9-3.2); Lymphocytes Percent Auto 30.4 % (18.3-44.2); Mean Corpuscular HGB Conc 32.5 g/dl (32-36); Mean Corpuscular Hemoglobin 29.7 pg (26-34); Mean Corpuscular Volume 91.2 fl (80-100); Mean Platelet Volume 11.1 fl (7.4-10.4); Monocytes Absolute Auto 0.7 K/mm3 (0.1-0.6); Monocytes Percent Auto 8.7 % (2.6-8.5); Neutrophils Absolute Auto 4.7 K/mm3 (1.3-6.7); Neutrophils Percent Auto 57.4 % (45.5-73.1); Platelet Count Result 259 k/mm3 (150-375); Red Blood Count 5.09 M/mm3 (4.6-6.20); Red Cell Distribution Width 12.8 % (11.5-14.5); White Blood Count 8.1 K/mm3 (4.5-10.0)
[2024-08-28 16:21] LABS: Alanine Aminotransferase 75 U/L (6-50); Albumin Level 4.2 g/dL (3.5-5.1); Alkaline Phosphatase 51 U/L (38-126); Anion Gap 8 mmol/L (4-12); Aspartate Amino Transferase 34 U/L (17-59); Bilirubin,Total 0.9 mg/dL (0.2-1.3); Blood Urea Nitrogen 11 mg/dL (9-20); Calcium 9.2 mg/dL (8.4-10.2); Carbon Dioxide 25 mmol/L (22-30); Chloride 105 mmol/L (98-107); Estimated CRCL calculation 155 ml/min; Estimated Glomerular Filt Rate > 60; Glucose 148 mg/dL (65-110); Potassium 4.2 mmol/L (3.4-5.0); Sodium 138 mmol/L (137-145)
[2024-08-28 16:30] LABS: Prothrombin Time 13.3 Seconds (11.1-14.7)
[2024-08-28 16:31] LABS: Partial Thromboplastin Time 23.5 Seconds (22.3-36.8)
[2024-08-28 16:55] LABS: Influenza A QL RT-PCR Negative (Negative); Influenza B QL RT-PCR Negative (Negative); RSV RNA, RT-PCR Negative (Negative); SARS-CoV-2 RNA PCR Negative (Negative)
[2024-08-28 17:04] VITALS: BP 133/82; PULSE 62
[2024-08-28 17:07] VITALS: BP 137/80; PULSE 61; RESP 16; O2SAT 97
--- OUTSIDE RECORDS SUMMARY | 2024-08-28 18:06 | XMS_ITS | Clinical Summary ---
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 Not on file Not on file Not on file Last Filed Vital Signs Vital Sign Reading Time Taken Comments Blood Pressure 145/76 07/07/2021 3:26 PM MACHINE MARKER Pulse 91 07/07/2021 3:26 PM MACHINE MARKER Temperature 36.7 C (98 F) 07/07/2021 3:26 PM MACHINE MARKER Respiratory Rate 15 07/07/2021 11:42 AM MACHINE MARKER Oxygen Saturation 97% 07/07/2021 3:26 PM MACHINE MARKER Inhaled Oxygen Concentration - - Weight 117.9 kg (260 lb) 07/07/2021 3:26 PM MACHINE MARKER Height 177.8 cm (5' 10 ) 07/07/2021 3:26 PM MACHINE MARKER Body Mass Index 37.31 07/07/2021 3:26 PM MACHINE MARKER Plan of Treatment Health Maintenance Due Date [...] age to complete this topic Insurance [facility]ERR[facility]
[2024-08-28 18:58] VITALS: BP 140/80; PULSE 69; RESP 18; O2SAT 97
[2024-08-28 19:33] VITALS: BP 137/76; PULSE 76; RESP 16; O2SAT 98
== END 2024-08-28 19:34 | disposition home or self-care (01) ==
PROVIDERS: Physician Assistant; Emergency Provider Student in an Organized Health Care Education/Training Program
DX: R42 Dizziness and giddiness (principal); Z20.822 Contact with and (suspected) exposure to COVID-19; G47.30 Sleep apnea, unspecified; J45.909 Unspecified asthma, uncomplicated; K21.9 Gastro-esophageal reflux disease without esophagitis
CPT/HCPCS: 36415; 70450; 71046; 80053; 85025; 85610; 85730; 87637; 93005; 96374; 99284; A9270; J2405